=== PATIENT | male | born 1970 | race African-American/Black ===

== ENCOUNTER 2020-10-14 00:20 | Outpatient (CLI) | payer BC, SELFPAY ==
[2020-10-14 20:45] LABS: SARS-CoV-2 RNA PCR Negative
== END 2020-10-14 00:21 | disposition home or self-care (01) ==
LOC: ANHCOVIDDT 00:20
PROVIDERS: PCP Family Medicine; Visit Provider Internal Medicine Gastroenterology
DX: Z01.812 Encounter for preprocedural laboratory examination (principal); Z20.828 Contact with and (suspected) exposure to other viral communicable diseases
CPT/HCPCS: 87635; C9803; U0003

== ENCOUNTER 2020-10-17 01:55 | Day surgery (SDC) | payer BC, SELFPAY ==
[2020-10-14 10:21] VITALS: BMI 23.8
--- NOTE | 2020-10-14 10:54 | PC.NURSE ---
PATIENT DID NOT WANT TO ANSWER INTERVIEW QUESTIONS, HE STATED HE DOESN'T UNDERSTAND WHY IT IS NECESSARY FOR A SIMPLE PROCEDURE. EXPLAINED THIS IS REQUIRED INFO FOR PATIENT'S RECEIVING ANESTHESIA AND PROCEDURES LIKE THE ONE THAT HE IS SCHEDULED FOR. PATIENT DID ANSWER SOME OF THE QUESTIONS BUT WAS HESITANT ON SEVERAL AND BECAME ARGUMENTATIVE WITH EACH QUESTION BEING ASKED. JOSÉ MIGUEL FARMER
[2020-10-17 08:22] VITALS: BP 116/91; PULSE 73; RESP 18; TEMP 37.1; O2SAT 100
[2020-10-17] MEDS: LACTATED RINGERS 1,000 ML 150 ML IV CONT (08:42)
--- NOTE | 2020-10-17 09:38 | WPDANESEPPF ---
Anes - Initial Pre Proc Eval Procedure: Operation Date: 10/17/20 09:00 Proposed Procedures p Esophagogastroduodenoscopy - Erich Marquez DO Date/Time: 10/17/20 09:38 Surgeon: Erich Marquez DO Pre Op Diagnosis: GERD Patient Data Age: 50 Gender: M Height: 5 ft 3 in Weight: 61.6 kg Last Vital Signs Temp 98.7 F 10/17/20 08:22 Pulse 73 10/17/20 08:22 Resp 18 10/17/20 08:22 BP 116/91 H 10/17/20 08:22 Pulse Ox 100 10/17/20 08:22 Allergies Allergy/AdvReac Type Severity Reaction Status Date / Time No Known Allergies Allergy Verified 10/14/20 10:19 Home Medications Medication Instructions Recorded Confirmed Type gabapentin 300 mg PO HS 10/14/20 10/14/20 History hydrocodone-acetaminophen [Vicodin 1 tablet PO Q6H PRN 10/14/20 10/14/20 History ES] hydroxyzine HCl 25 mg PO QID PRN 10/14/20 10/14/20 History ibuprofen 800 mg PO TID PRN 10/14/20 10/14/20 History oxycodone 5 mg PO Q4H PRN 10/14/20 10/14/20 History paroxetine HCl 20 mg PO DAILY 10/14/20 10/14/20 History sucralfate 1 g PO QID 10/14/20 10/14/20 History Patient hx anesthesia problems: none Family hx anesthesia problems: none PENDING SALE TO [facility] Past Medical History Medical History (Updated 10/17/20 @ 09:37 by Kenroy Turner MD) Anxiety GERD (gastroesophageal reflux disease) Social History Social History Smoking packs per day: 0.75 Smoking cigarettes per day: 15.0 Years smoked: 10 Smoking pack-years: 7.50 Smoking status: Former smoker Tobacco type: cigarettes Alcohol intake: never Substance use: never Spiritual care concerns: No Anes - Eval Final PreProcedure Day of Procedure 10/17/20 09:38 Patient weight: normal Heart: regular rate and rhythm Lungs: clear to auscultation Airway: Mallampati scale class II Neurological: alert and oriented Last oral intake: >/= 8 hours ASA classification: II Emergent: no Anesthetic plan: proceed Anesthesia type and monitoring: general GIVS and standard monitoring Informed Consent: The patient's anesthetic plan and its attendant risks and benefits were discussed with the patient/family/POA. Questions were solicited and answers provided to the satisfaction of the patient/family/POA.
--- NOTE | 2020-10-17 10:56 | P.CONGI_ITS ---
Assessment and Plan Assessment and plan (1) GERD (gastroesophageal reflux disease): Code(s): K21.9 - Gastro-esophageal reflux disease without esophagitis Status: Inactive Assessment and Plan: Patient gives a clinical history strongly suspicious for acid reflux. More specifically he reports regurgitation. Currently being treated with Carafate has had some improvement over the last 2 weeks. Plan is to evaluate with an EGD. Further recommendations will be given after endoscopy. (2) Anxiety: Code(s): F41.9 - Anxiety disorder, unspecified Status: Inactive GI Consult Note Consult date/time: 10/17/20 10:56 HPI: Steve Ward is a 50 year old male Seen today as a result to Dr. Marquez's incapacitation. Patient gives the her history of regurgitation. He states for many years has had acid regurgitation with bitter taste his mouth. Symptoms have started since at least 2002. He does notice frequent regurgitation. Sometimes will notice hiccups associated with this. Initially treated with a PPI. This did not change his symptoms. He has had more success recently over the last 2 weeks with a trial of Carafate 1 g p.o. to q.i.d.. Patient denies any significant pain. He is quite anxious and upset about this period wishes at to stop without the use of medications. Review of Systems Review of Systems: All systems reviewed & are unremarkable except as noted in HPI and below PMFSH Past Medical History Medical History Anxiety GERD (gastroesophageal reflux disease) Social History Social History Smoking packs per day: 0.75 Smoking cigarettes per day: 15.0 Years smoked: 10 Smoking pack-years: 7.50 Smoking status: Former smoker Tobacco type: cigarettes Alcohol intake: never Substance use: never Spiritual care concerns: No Meds Home Medications and Allergies Home Medications Medication Instructions Recorded Confirmed Type gabapentin 300 mg PO HS 10/14/20 10/14/20 History hydrocodone-acetaminophen [Vicodin 1 tablet PO Q6H PRN 10/14/20 10/14/20 History ES] hydroxyzine HCl 25 mg PO QID PRN 10/14/20 10/14/20 History ibuprofen 800 mg PO TID PRN 10/14/20 10/14/20 History oxycodone 5 mg PO Q4H PRN 10/14/20 10/14/20 History paroxetine HCl 20 mg PO DAILY 10/14/20 10/14/20 History sucralfate 1 g PO QID 10/14/20 10/14/20 History Allergies Allergy/AdvReac Type Severity Reaction Status Date / Time No Known Allergies Allergy Verified 10/14/20 10:19 Vital Signs Vital Signs - 24 hr 10/17/20 08:22 Temperature 98.7 F Pulse Rate 73 Respiratory Rate 18 Blood Pressure 116/91 H Pulse Oximetry 100 Exam Narrative: Exam Narrative: Physical exam reveals patient be alert. Vital signs stable. HEENT exam unremarkable. Lungs are clear to auscultation and pe rcussion. Heart is without murmur or extra sounds. Abdominal exam bowel sounds are present soft nontender with no organomegaly. Digital external rectal exam deferred at this time.
[2020-10-17 12:33] VITALS: BP 94/56; PULSE 81; RESP 14; O2SAT 100
[2020-10-17 12:43] VITALS: BP 104/69; PULSE 80; RESP 15; O2SAT 100
[2020-10-17 12:53] VITALS: BP 120/84; PULSE 78; RESP 15; O2SAT 99
== END 2020-10-17 13:32 | disposition home or self-care (01) ==
PROVIDERS: PCP Family Medicine; Visit Provider Internal Medicine Gastroenterology
PROC: 0DJ08ZZ Inspection of Upper Intestinal Tract, Via Natural or Artificial Opening Endoscopic (ICD-10-PCS; CPT 43235; principal; 2020-10-17 09:00)
DX: K21.00 Gastro-esophageal reflux disease with esophagitis, without bleeding (principal); F41.9 Anxiety disorder, unspecified; Z87.891 Personal history of nicotine dependence
CPT/HCPCS: 43235; J2704; J7120

== ENCOUNTER → 2023-02-01 07:56 | Outpatient (CLI) | payer BC, SELFPAY ==
--- NOTE | ~2023-02-01 | MR_ITS ---
MRI of the cervical spine Clinical History: Pain Technique: Axial T2-weighted and gradient images, and sagittal T1-weighted, T2-weighted, and STIR leela ges were acquired. Findings: There is no fracture or subluxation of the cervical spine. Vertebral bodies maintain normal height and alignment. No bone marrow signal reality identified. At C2-C3, C3-C4, C4-C5, and C5-C6, there is no significant disc bulge or herniation. No spinal canal stenosis, cord compression, or neural foraminal narrowing at these levels. At C6-C7, there is minimal disc bulge with possible minimal bilateral neural foraminal narrowing. No spinal canal stenosis or cord compression. No abnormal signal seen in the spinal cord. Paravertebral soft tissues are unremarkable. Impression: Probable minimal bilateral neural foraminal narrowing at C6-C7. Reviewed, dictated and finalized at [facility]. Impression: Probable minimal bilateral neural foraminal narrowing at C6-C7.
== END ==
DX: M54.12 Radiculopathy, cervical region (principal)
CPT/HCPCS: 72141